=== PATIENT | female | born 1965 | race Caucasian/White ===

== ENCOUNTER 2018-04-06 09:35 | Observation (INO) ==
--- NOTE | 2018-04-06 08:08 | P.PCNOB ---
Pre-Op/Post-Op Diagnoses Operation Date: 04/06/18 11:00 <No data on this case meets the specified criteria> Per-op diagnosis 1. Bilateral complex ovarian masses 2. pelvic pain Post-op diagnoses 3. Large Left endometrioma 4. Extensive pelvic adhesions involving bowel, anterior abdominal wall, pelvis Procedure: Procedures Operation Date: 04/06/18 11:00 <No data on this case meets the specified criteria> 1. Laparoscopic lysis of adhesions 2. Surgical case was converted to abdominal laparotomy with lysis of adhesions 3. Bilateral salpingo-oophorectomy Estimated blood loss (mL): 100 Anesthesia type: General Complications: none Specimen: other (bilateral fallopian tubes and bilateral ovaries) Findings: 1. extensive peritoneal adhesions involving the anterior abdominal wall and the bowel 2. extensive adhesions involving the adnexa and the bowel 3. very large left endometrioma 4. complex right ovarian cysts Disposition: PACU Narrative: Descriptions of the procedure: I discussed the risks, benefits and alternatives of the procedure with the patient. Informed consent was obtained after questions were answered. She was then taken to the operating room with her IV running. She was placed in the supine position and was given general anesthesia without difficulties or complications. IV antibiotics were given. She was then placed in the supine position and was prepped and draped in the usual sterile fashion. Attention was turned to the patient's abdomen. A vertical umbilical incision was made with the scalpel. A 5 mm trocar was introduced inside the patient's abdomen under direct visualization. A pneumo-peritoneum was created with CO2 gas. Three 5 mm trocars were introduced inside the patient's abdomen under direct visualization in the lower right, left and mid abdomen. A survey of the patient's abdomen revealed normal anatomy with extensive adhesions involving the bowel and the anterior abdominal wall. A survey of the patient's pelvis revealed the findings noted above. Lysis of thick, fibrous adhesions was done laparoscopically in order to return anatomy to normal and to be able to proceed with the surgery. However, once the very large left endometrioma was noted to have extensive adhesions attaching it to loops of bowel, the decision was made to convert the surgery to laparotomy. Nursing staff informed the about the changes. He verbalized understanding and agreement. Methylene blue dye was given to patient. A Pfannenstiel skin incision was made with the scalpel. This incision was extended to the fascia with the aid of the Bovie. The fascia was incised in the mid line with the scalpel and was extended with the Bovie. The rectus muscles were with hemostats. Lysis of adhesions was needed in order to enter the pelvis. The ureters were identified and found to be away from surgical site. Moist laparotomy sponges were placed under the blades of O Salvatore O Juan retractor. A bladder blade was placed. Moist laparotomy sponges were used to pack the bowel. Another retractor was placed. More lysis of thick, fibrous adhesions was needed in order to proceed. The infundibulopelvic ligaments were identified, doubly clamped, transected and suture ligated with 0-Vicryl. Excellent hemostasis was noted. The same was done with thick, fibrous adhesions in order to free the adnexa. The tissues were sent to Pathology. The surgical sites were noted to be hemostatic. Copious irrigation was done. Methylene blue dye was given at the beginning of the surgical procedure. The ureters were identified again and were found to be away from the surgical sites. There was no evidence of injury or blockage of the ureters or bladder. Geovani powder was placed over the pedicles. All of the instruments were removed from the patient's abdomen. Sepra film was placed over the bowel. The peritoneum was reapproximated with running stitches of 0-Vicryl. The muscles were reapproximated with running stitches of 0-Vicryl. Excellent hemostasis was noted. The fascia was reapproximated with running stitches of looped PDS. The subcutaneous tissues were copiously irrigated and reapproximated with running stitches of 2-0 Vicryl. The skin incisions were injected with 0.5 % Marcaine and were reapproximated with subcutaneous stitches of 4-0 Vicryl. Mastisol and steri strips were placed over the incisions. The patient tolerated the procedure well. She was successfully extubated and transferred to PACU in stable condition. This case took 60 minutes longer than the usual due to adhesions and the need to convert to laparotomy. Note: I discussed surgical procedures and surgical findings with patient's . His questions were answered. He verbalized understanding.
[2018-04-06] MEDS ORDERED: Metoprolol Tartrate 25 MG Tablet PO SCH (11:30)
[2018-04-06] MEDS ORDERED: Chlorhexidine Gluconate 2% 1 Pack (2 Cloths) TOPICAL SCH (11:30)
[2018-04-06] MEDS ORDERED: Ketamine Inj 50 MG/5 ML Syringe IV.PUSH ONE (11:50)
[2018-04-06] MEDS ORDERED: Ketorolac Inj 30 MG/ML (IVP) Vial IV.PUSH ONE (12:00)
[2018-04-06] MEDS ORDERED: Phenylephrine/NS 1000 MCG/10ML Syringe IV.PUSH ONE (12:00)
[2018-04-06] MEDS ORDERED: Glycopyrrolate Inj 1 MG/5 ML Syringe IV.PUSH ONE (12:00)
[2018-04-06] MEDS ORDERED: Neostigmine Inj 5 MG/5 ML Syringe IV.PUSH ONE (12:00)
[2018-04-06] MEDS ORDERED: Lidocaine PF 1% Inj 5 ML Syringe INFILTRATN ONE (12:00)
[2018-04-06] MEDS ORDERED: Sodium Chlor 0.9% Inj 500 ML IV.SIG SCH (12:00)
[2018-04-06] MEDS ORDERED: Sodium Chlor 0.9% Inj 0 ML ONE (12:01)
[2018-04-06] MEDS ORDERED: Bupivacaine PF 0.5% Inj 30 ML Vial ONE (12:02)
[2018-04-06] MEDS ORDERED: Bupivacaine/Epinephrine PF Inj 0.5% 10 ML Vial ONE (12:44)
[2018-04-06] MEDS ORDERED: Methylene Blue Inj 10 MG/ML Vial ONE (13:51)
[2018-04-06] MEDS ORDERED: fentaNYL Citrate Inj 100 MCG/2 ML Ampul ONE (14:22)
[2018-04-06] MEDS ORDERED: LORazepam 0.5 MG Tablet PO PRN (14:36)
[2018-04-06] MEDS ORDERED: *Meperidine Inj 25 MG/ML Vial PERIprocedural Use ONLY ONE (15:21)
[2018-04-06] MEDS ORDERED: *morphine SULFATE 4 MG/ML PERIprocedure ONLY ONE (15:41)
--- NOTE | 2018-04-06 18:59 | ECG ---
Date Performed: 04/06/2018 Time Performed: 10:03:51 PTAGE: 52 years EKG: Sinus rhythm POSSIBLE INFERIOR MYOCARDIAL INFARCTION , PROBABLY OLD ABNORMAL ECG NO PREVIOUS TRACING DOCTOR: Lyndsey Anders Interpretating Date/Time 04/06/2018 18:57:38
[2018-04-06] MEDS: Morphine Inj 4 MG/ML Vial IV.PUSH PRN (20:11)
[2018-04-06] MEDS ORDERED: Zolpidem Tartrate 5 MG Tablet PO PRN (21:00)
[2018-04-06] MEDS ORDERED: Docusate Sodium 100 MG Capsule PO SCH (21:00)
[2018-04-07] MEDS: Morphine Inj 4 MG/ML Vial IV.PUSH PRN (04:23)
[2018-04-07 06:25] LABS: Baso % (Auto) 0.1 % (0.0-2.0); Hematocrit 40.6 % (35.0-46.0); Hemoglobin 13.7 gm/dL (11.6-15.3); Lymph # (Auto) 1.2 th/mm3 (1.0-4.8); Lymph % (Auto) 7.1 % (9.0-44.0); Mean Corpuscular HGB Conc 33.7 % (32.0-36.0); Mean Corpuscular Hemoglobin 29.3 pg (27.0-34.0); Mean Corpuscular Volume 86.9 fL (80.0-100.0); Mean Platelet Volume 8.9 fL (7.0-11.0); Mono # (Auto) 0.9 th/mm3 (0.0-0.9); Mono % (Auto) 5.2 % (0.0-8.0); Neut # (Auto) 15.5 th/mm3 (1.8-7.7); Neut % (Auto) 87.6 % (16.0-70.0); Platelet Count 236 th/mm3 (150-450); Red Blood Count 4.67 mil/mm3 (4.00-5.30); Red Cell Distribution Width 13.4 % (11.6-17.2); White Blood Count 17.6 th/mm3 (4.0-11.0)
[2018-04-07 06:49] LABS: Carbon Dioxide 24.9 meq/L (21.0-32.0); Potassium 3.4 meq/L (3.5-5.1)
--- NOTE | 2018-04-07 08:30 | P.PNOB ---
Assessment and Plan (1) Complex cyst of right ovary Status: Acute (2) Complex cyst of left ovary Status: Acute (3) Pelvic and perineal pain Status: Acute - Postoperative Procedures Operation Date: 04/06/18 12:21 Actual Procedures Side Surgeon p OPEN BILATERAL SALPINGO-OOPHERECTOMY, LYSIS OF ADHESIONS Bilateral Charisse MD Dalia Postoperative status: doing well, anemia Postoperative plan: routine post-op care, discharge - Time Spent With Patient Total time spent is greater than 50% in coordination of care (as documented) at patient's floor/unit and/or counseling patient: 25 - 35 minutes Subjective Subjective: patient reports feeling better, patient has no complaints, patient desires discharge, pain is well controlled, patient is tolerating oral intake Physical Exam Vital signs: Temp Pulse Resp BP Pulse Ox 98.5 F 92 H 20 148/71 H 92 L 04/07/18 04:34 04/07/18 04:34 04/07/18 04:34 04/07/18 04:34 04/07/18 04:34 - Constitutional no acute distress, cooperative - Routine Abdominal Exam Present: soft, normoactive bowel sounds Comments: incisions are C/D/I - Urinary Catheter Management Indwelling Urethral Catheter Cath placed during this visit: yes Urethral indwelling: No Insertion date: 04/06/18 Results - Labs CBC & Chem 7: 04/07/18 05:32 04/07/18 05:32 Labs: Laboratory Results - last 24 hr 04/07/18 04/07/18 05:32 05:32 WBC 17.6 H RBC 4.67 Hgb 13.7 Hct 40.6 MCV 86.9 MCH 29.3 MCHC 33.7 RDW 13.4 Plt Count 236 MPV 8.9 Neut % (Auto) 87.6 H Lymph % (Auto) 7.1 L Cobb % (Auto) 5.2 Eos % (Auto) 0.0 Baso % (Auto) 0.1 Neut # (Auto) 15.5 H Lymph # (Auto) 1.2 Cobb # (Auto) 0.9 Eos # (Auto) 0.0 Baso # (Auto) 0.0 WBC Differential . Differential Comment Auto diff final Sodium 144 Potassium 3.4 L Chloride 109 H Carbon Dioxide 24.9 Anion Gap 10 BUN 8 Creatinine 0.76 Estimated GFR 80 L Random Glucose 111 H Calcium 9.0
[2018-04-07] MEDS: Ibuprofen 600 MG Tablet PO PRN ×2 (08:44→14:31)
[2018-04-07] MEDS ORDERED: amLODIPine 10 MG Tablet PO SCH ×2 (09:00→21:00)
[2018-04-07] MEDS ORDERED: hydroCHLOROthiazide 25 MG Tablet PO SCH (10:00)
== END 2018-04-07 14:44 | disposition home or self-care (01) ==
LOC: H1EA 09:35 → HSDI 09:35 → HSDC 09:35 → H1EA 15:48
PROVIDERS: ADMIT Obstetrics & Gynecology; ATTEND Obstetrics & Gynecology